=== PATIENT | female | born 2000 | race Caucasian/White ===

== ENCOUNTER 2020-09-26 09:22 | Emergency (ER) | payer OTHER ==
[2020-09-26] MEDS ORDERED: IBUPROFEN600 MG PO (11:25)
[2020-09-26] MEDS ORDERED: NORFLEX 100 MG100 MG PO (11:25)
== END 2020-09-26 12:19 | disposition home or self-care (01) ==
LOC: ER1 09:22
DX: S00.83XA Contusion of other part of head, initial encounter (principal); S40.811A Abrasion of right upper arm, initial encounter; M79.604 Pain in right leg; M79.605 Pain in left leg; Z23 Encounter for immunization; V49.40XA Driver injured in collision with unspecified motor vehicles in traffic accident, initial encounter; Y92.410 Unspecified street and highway as the place of occurrence of the external cause
CPT/HCPCS: 70486; 72125; 90471; 90715; 99283